=== PATIENT | male | born 1995 | race African-American/Black ===

== ENCOUNTER 2017-11-28 15:15 | Emergency (ER) | payer OTHER, SELFPAY ==
[2017-11-28 15:50] LABS: Bilirubin Negative (Negative); Blood, Urine Negative (Negative); Glucose, Urine (Dipstick) Negative (Negative); Leukocyte Trace (Negative); Nitrite Negative (Negative); Protein, Urine (Dipstick) Negative (Neg-Trace); Urobilinogen 0.2 mg/dL (0.2-1.0)
[2017-11-28 16:00] LABS: Clarity Hazy (Clear); RBC/HPF None Seen HPF (0-3); Squamous Epithelial None Seen HPF (0-3)
[2017-11-28 16:01] LABS: Bacteria/HPF 1+ HPF (None Seen)
[2017-11-28] MEDS ORDERED: Ketorolac Tromethamine 60 MG/2 ML VIAL ONE (16:08)
[2017-11-28] MEDS ORDERED: Lidocaine 1% PF 5 ML VIAL ONE (16:37)
[2017-11-28] MEDS ORDERED: Azithromycin 250 MG TAB ONE (16:37)
[2017-11-28] MEDS ORDERED: cefTRIAXone\\ROCEPHIN 250 MG VIAL ONE (16:37)
[2017-11-29 21:20] LABS: Chlamydia by PCR DETECTED (NotDetected); GC by PCR Not Detected (NotDetected)
== END 2017-11-28 17:05 | disposition home or self-care (01) ==
LOC: SCSER 15:15
DX: N39.0 Urinary tract infection, site not specified (principal); J45.909 Unspecified asthma, uncomplicated
CPT/HCPCS: 81003; 81015; 87491; 87591; 96372; J0696; J1885; J2001

== ENCOUNTER 2020-02-16 00:49 | Emergency (ER) | payer SELFPAY | END 2020-02-16 02:30 | disposition home or self-care (01) | LOC: ERS 00:49 | DX: H10.9 Unspecified conjunctivitis (principal) | CPT/HCPCS: 99282 ==

== ENCOUNTER 2022-08-22 07:33 | Emergency (ER) | payer BC, SELFPAY ==
[2022-08-22 09:42] LABS: #Eosinphils 0.1 thou/uL (0.0-0.7); #Lymphocytes 2.4 thou/uL (1.20-3.40); #Monocytes 0.8 thou/uL (0.11-0.59); %Basophils 0.3 % (0.0-1.0); %Eosinophils 1.5 % (0.0-10.0); %Lymphocytes 32.9 % (21.0-51.0); %Monocytes 10.4 % (0.0-10.0); %Neutrophils 54.9 % (42.0-75.0); Hemoglobin 14.9 g/dL (14.0-18.0); Mean Corpuscular Hemoglobin 24.9 pg (27.0-31.0); Mean Corpuscular Volume 77.6 fl (78.0-98.0); Mean Platelet Volume 8.1 fL (7.4-10.4); Platelet Count 257 10x3/uL (130-400); White Blood Cell (WBC) Count 7.3 10x3/uL (4.8-10.8)
[2022-08-22 09:58] LABS: ALT (SGPT) 54 U/L (8-55); AST (SGOT) 33 U/L (5-34); Albumin 4.7 g/dL (3.5-5.0); Alkaline Phosphatase 68 U/L (40-110); Anion Gap 15 mmol/L (10-20); BUN (Urea Nitrogen) 8 mg/dL (8.9-20.6); Bilirubin, Total 0.6 mg/dL (0.2-1.2); Calc. Creatinine Clearance 0 mL/min (70-130); Calcium 9.5 mg/dL (7.8-10.44); Carbon Dioxide 25 mmol/L (22-29); Chloride 103 mmol/L (98-107); Estimated GFR 124; Globulin 3.6 g/dL (2.4-3.5); Glucose 84 mg/dL (70-105); Potassium 3.9 mmol/L (3.5-5.1); Protein, Total 8.3 g/dL (6.0-8.3); Sodium 139 mmol/L (136-145)
== END 2022-08-22 11:00 | disposition home or self-care (01) ==
LOC: ERS 07:33
DX: M79.601 Pain in right arm (principal); M54.10 Radiculopathy, site unspecified
CPT/HCPCS: 36415; 80053; 84484; 85025; 93005

== ENCOUNTER 2023-08-31 12:30 | Emergency (ER) | payer BC ==
[2023-08-31 13:53] LABS: SARS-CoV-2 NAA Rapid Test Not Detected (NotDetected)
== END 2023-08-31 14:41 | disposition home or self-care (01) ==
LOC: ERS 12:30
DX: J10.1 Influenza due to other identified influenza virus with other respiratory manifestations (principal); M25.571 Pain in right ankle and joints of right foot; Z20.822 Contact with and (suspected) exposure to COVID-19
CPT/HCPCS: 71045; 87081; 87430; 93005